=== PATIENT | female | born 1960 | race Caucasian/White ===

== ENCOUNTER 2019-07-20 09:46 | Emergency (ER) | payer MEDICAID, OTHER ==
[~2019-07-20] VITALS: Ht 154 cm; Wt 72.0 kg
--- NOTE | 2019-07-20 10:05 | ED General ---
General Stated Complaint: BACK PAIN Source of Information: Patient Exam Limitations: No Limitations History of Present Illness Date Seen by Provider: Jul 20, 2019 Time Seen by Provider: 10:01 Initial Comments Presents w complaint of low back pain. Hx of chronic pain. Worried she may have an infection. Allergies and Home Medications Allergies Coded Allergies: No Known Drug Allergies (Unverified , 07/20/19) Home Medications Cyclobenzaprine HCl 10 Mg Tablet, 10 MG PO Q8H PRN for SPASMS Prescribed by: GERALD LUGO on 07/20/19 1021 Ondansetron 4 Mg Tab.rapdis, 4 MG PO Q6H PRN for NAUSEA/VOMITING Prescribed by: GERALD MCELROYSTINE on 07/20/19 1021 Patient Home Medication List Home Medication List Reviewed: Yes Review of Systems Review of Systems Constitutional: see HPI; No chills, No diaphoresis, No dizziness, No fever; malaise; No weakness EENTM: no symptoms reported Respiratory: No cough, No short of breath Cardiovascular: No chest pain, No edema, No palpitations Gastrointestinal: No abdominal pain, No constipation, No nausea, No vomiting Genitourinary: see HPI; No dysuria, No frequency, No hematuria Musculoskeletal: back pain, muscle pain; No neck pain Skin: No change in color, No pruritus, No rash Past Irxirvg-Wiqxyb-Lydpja Hx Past Med/Social Hx: Reviewed Nursing Past Med/Soc Hx Patient Social History Recent Foreign Travel: No Contact w/Someone Who Travel: No Physical Exam Vital Signs Vital Signs - First Documented 07/20/19 10:02 Temp 36.5 Pulse 92 Resp 18 B/P (MAP) 182/88 (119) O2 Delivery Room Air Capillary Refill : Height, Weight, BMI Height: '" Weight: lbs. oz. kg; BMI Method: General Appearance: No Apparent Distress, WD/WN HEENT: Normal ENT Inspection Respiratory: Chest Non Tender, Lungs Clear Cardiovascular: Regular Rate, Rhythm, No Edema Gastrointestinal: Non Tender, Soft Back: No CVA Tenderness, No Vertebral Tenderness, Other (lumbar paraspinal ms mild discomfort TTP) Extremity: Normal Capillary Refill, Normal Inspection, Non Tender, No Pedal Edema Neurologic/Psychiatric: Alert, No Motor/Sensory Deficits Progress/Results/Core Measures Suspected Sepsis SIRS Temperature: Pulse: Respiratory Rate: Blood Pressure / Mean: Results/Orders Lab Results Laboratory Tests Test 07/20/19 10:00 Range/Units Urine Color YELLOW Urine Clarity CLEAR Urine pH 6.5 5-9 Urine Specific [place] 1.020 1.016-1.022 Urine Protein 1+ H NEGATIVE Urine Glucose (UA) NEGATIVE NEGATIVE Urine Ketones NEGATIVE NEGATIVE Urine Nitrite NEGATIVE NEGATIVE Urine Bilirubin NEGATIVE NEGATIVE Urine Urobilinogen 0.2 < = 1.0 MG/DL Urine Leukocyte Esterase NEGATIVE NEGATIVE Urine RBC (Auto) 1+ H NEGATIVE Urine RBC RARE /HPF Urine WBC 0-2 /HPF Urine Squamous Epithelial Cells RARE /HPF Urine Crystals NONE /LPF Urine Bacteria NEGATIVE /HPF Urine Casts PRESENT /LPF Urine Hyaline Casts 0-2 H /LPF Urine Mucus NONE /LPF Urine Culture Indicated NO My Orders Orders - GERALD LUGO DO Urinalysis (07/20/19 10:00) Vital Signs/I&O 07/20/19 10:02 Temp 36.5 Pulse 92 Resp 18 B/P (MAP) 182/88 (119) O2 Delivery Room Air Capillary Refill : Departure Impression Primary Impression: Chronic pain Qualified Codes: G89.29 - Other chronic pain Additional Impression: Myalgia Disposition: HOME, SELF-CARE Condition: Stable Departure-Patient Inst. Decision time for Depature: 10:05 Referrals: SELFCHOLO MD (PCP/Family) Primary Care Physician Patient Instructions: Chronic Pain (DC) Scripts Ondansetron (Ondansetron Odt) 4 Mg Tab.rapdis 4 MG PO Q6H PRN for NAUSEA/VOMITING, #8 TAB 0 Refills Prov: LILIBETHSTINEGERALD L DO 07/20/19 Cyclobenzaprine HCl (Cyclobenzaprine HCl) 10 Mg Tablet 10 MG PO Q8H PRN for SPASMS, #15 TAB 0 Refills Prov: ROVENSTINE,GERALD L DO 07/20/19 ROVENSTINENIMISHAGERALD L Jul 20, 2019 10:05
[2019-07-20 10:13] LABS: COLOR,URINE YELLOW
[2019-07-20 10:14] LABS: BACTERIA,URINE NEGATIVE /HPF; BILIRUBIN,URINE NEGATIVE (NEGATIVE); CLARITY,URINE CLEAR; GLUCOSE, URINE (UA) NEGATIVE (NEGATIVE); HYALINE CASTS, URINE 0-2 /LPF; KETONES,URINE NEGATIVE (NEGATIVE); LEUKOCYTE ESTERASE ,URINE NEGATIVE (NEGATIVE); NITRITE,URINE NEGATIVE (NEGATIVE); PH,URINE 6.5 (5-9); PROTEIN,URINE 1+ (NEGATIVE); RBC,URINE RARE /HPF; SQUAMOUS EPITHELIAL CELL,UR RARE /HPF; WBC,URINE 0-2 /HPF
[2019-07-20] MEDS ORDERED: CYCL10TA9 PO (10:21)
[2019-07-20] MEDS ORDERED: ONDA4TAB11 PO (10:21)
[2019-07-20 10:25] VITALS: BP 182/88
== END 2019-07-20 10:24 | disposition home or self-care (01) ==
LOC: EDUNIT# 09:46 → ER FS 09:49
DX: M54.5 Low back pain (principal); G89.29 Other chronic pain; M79.7 Fibromyalgia
CPT/HCPCS: 81000; 99281

== ENCOUNTER 2022-03-15 16:15 | Emergency (ER) | payer MEDICAID ==
[~2022-03-15 16:15] MED LIST: CYCL10TA25 PO; ONDA4TAB11 PO
[2022-03-15 17:01] LABS: BILIRUBIN,URINE NEGATIVE (NEGATIVE); CLARITY,URINE SL CLOUDY; GLUCOSE, URINE (UA) NEGATIVE (NEGATIVE); KETONES,URINE NEGATIVE (NEGATIVE); LEUKOCYTE ESTERASE ,URINE NEGATIVE (NEGATIVE); NITRITE,URINE NEGATIVE (NEGATIVE); PH,URINE 6.5 (5-9); PROTEIN,URINE NEGATIVE (NEGATIVE)
--- NOTE | 2022-03-15 17:02 | ED Cough/URI ---
General Chief Complaint: Cough/Cold/Flu Symptoms Stated Complaint: DETOX FROM MEDS Nursing Triage Note: PT REPORTS EARACHE BILATERALLY, RUNNY NOSE. PT WANTS TO KNOW IF DR WOULD START HER ON SUBOXONE TOO. (MARJAN MARSH) History of Present Illness Date Seen by Provider: Mar 15, 2022 Time Seen by Provider: 16:45 Initial Comments 61 yo female with hx of breast ca, COPD, and depression presents to the ED with URI sx. Pt reports for 5 days she has been having post nasal drip, nonproductive cough, CAMERON, sinus congestion, and b/l ear pain. She notes that she felt like she had a fever yesterday. Has taken Tylenol with mild relief of sx. Also reports that she has had withdrawal sx since tapering off her prescription pain medi cations. Has associated N/V/D for several months. Said that she found a pill of Oxyecodeine in her house 2 days ago and took it after going several weeks without taking pain medications. Wants to know if she could start suboxone. Denies any CP or SOB. No other complaints. Pt is not covid or flu vaccinated. (MARJAN MARSH) Allergies and Home Medications Allergies Coded Allergies: No Known Drug Allergies (Unverified , 07/20/19) Patient Home Medication List Home Medication List Reviewed: Yes (MARJAN MARSH) Cyclobenzaprine HCl (Cyclobenzaprine HCl) 10 Mg Tablet, 10 MG PO Q8H PRN for SPASMS Prescribed by: GERALD MCELROYSTDEBBIE on 07/20/19 1021 Ondansetron (Ondansetron Odt) 4 Mg Tab.rapdis, 4 MG PO Q6H PRN for NAUSEA/VOMITING Prescribed by: GERALD MCELROYSTINE on 07/20/19 1021 Ondansetron (Ondansetron Odt) 4 Mg Tab.rapdis, 4 MG SL Q4H PRN for NAUSEA/VOMITING Prescribed by: APRIL ALDANA on 03/15/221910 Pantoprazole Sodium (Protonix) 40 Mg Tablet.dr, 40 MG PO DAILY Prescribed by: APRIL ALDANA on 03/15/221910 Potassium Chloride (Potassium Chloride) 10 Meq Tab.er.prt, 10 MEQ PO DAILY Prescribed by: APRIL ALDANA on 03/15/221910 Review of Systems Review of Systems Constitutional: dizziness, malaise EENTM: ear pain, nose congestion Cardiovascular: no symptoms reported Gastrointestinal: diarrhea, loss of appetite, nausea, vomiting Genitourinary: no symptoms reported Musculoskeletal: no symptoms reported Skin: no symptoms reported Psychiatric/Neurological: No Symptoms Reported Hematologic/Lymphatic: No Symptoms Reported Immunological/Allergic: no symptoms reported (MARJAN MARSH) All Other Systems Reviewed Negative Unless Noted: Yes (MARJAN MARSH) Past Krftwnb-Znzbuc-Vazqjf Hx Patient Social History Tobacco Use?: Yes Tobacco type used: Cigarettes Use of E-Cig and/or Vaping dev: No Substance use?: No Alcohol Use?: No Pt feels they are or have been: No (MARJAN MARSH) Seasonal Allergies Seasonal Allergies: No (MARJAN MARSH) Past Medical History Surgery/Hospitalization HX: breast ca Respiratory: No Cardiac: No Neurological: No Genitourinary: No Gastrointestinal: No Musculoskeletal: Yes Arthritis, Chronic Back Pain Endocrine: No HEENT: No Cancer: No Psychosocial: Yes Anxiety, Depression Integumentary: No Blood Disorders: No (MARJAN MARSH) Physical Exam Vital Signs - First Documented 03/15/22 16:15 Temp 36.7 Pulse 93 Resp 18 B/P (MAP) 150/100 (117) Pulse Ox 100 O2 Delivery Room Air (APRIL AUSTIN MD) Capillary Refill : Less Than 3 Seconds (MARJAN MARSH) Height: '" Weight: lbs. oz. kg; 30.00 BMI Method: General Appearance: WD/WN, no apparent distress Eyes: Bilateral Eye Normal Inspection, Bilateral Eye PERRL, Bilateral Eye EOMI HEENT: PERRL/EOMI, normal ENT inspection, TMs normal, pharyngeal erythema Neck: non-tender, full range of motion, supple, normal inspection Respiratory: chest non-tender, lungs clear, normal breath sounds, no respiratory distress, no accessory muscle use Cardiovascular: regular rate, rhythm, no edema, no gallop, no JVD, no murmur Gastrointestinal: normal bowel sounds, non tender, soft, no organomegaly, no pulsatile mass Extremities: normal range of motion, non-tender, normal inspection, no pedal edema, no calf tenderness, normal capillary refill 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, no motor/sensory deficits, normal mood/affect, oriented x 3 Skin: normal color, warm/dry Lymphatic: no adenopathy (MARJAN MARSH) Progress/Results/Core Measures Suspected Sepsis SIRS Temperature: Pulse: 93 Respiratory Rate: 18 Blood Pressure 150 /100 Mean: 117 (MARJAN MARSH) Results/Orders Lab Results Laboratory Tests Test 03/15/22 16:25 03/15/22 16:48 03/15/22 17:43 Range/Units Influenza Type A (RT-PCR) Not Detected Not Detecte Influenza Type B (RT-PCR) Not Detected Not Detecte SARS-CoV-2 RNA (RT-PCR) Not Detected Not Detecte Urine Color PALE YELLOW Urine Clarity SL CLOUDY Urine pH 6.5 5-9 Urine Specific [place] <=1.005 1.016-1.022 Urine Protein NEGATIVE NEGATIVE Urine Glucose (UA) NEGATIVE NEGATIVE Urine Ketones NEGATIVE NEGATIVE Urine Nitrite NEGATIVE NEGATIVE Urine Bilirubin NEGATIVE NEGATIVE Urine Urobilinogen 0.2 < = 1.0 MG/DL Urine Leukocyte Esterase NEGATIVE NEGATIVE Urine RBC (Auto) NEGATIVE NEGATIVE Urine RBC RARE /HPF Urine WBC RARE /HPF Urine Squamous Epithelial Cells RARE /HPF Urine Crystals NONE /LPF Urine Bacteria NEGATIVE /HPF Urine Casts NONE /LPF Urine Mucus NEGATIVE /LPF Urine Culture Indicated NO Urine Opiates Screen NEGATIVE NEGATIVE Urine Oxycodone Screen NEGATIVE NEGATIVE Urine Methadone Screen NEGATIVE NEGATIVE Urine Propoxyphene Screen NEGATIVE NEGATIVE Urine Barbiturates Screen NEGATIVE NEGATIVE Ur Tricyclic Antidepressants Screen NEGATIVE NEGATIVE Urine Phencyclidine Screen NEGATIVE NEGATIVE Urine Amphetamines Screen NEGATIVE NEGATIVE Urine Methamphetamines Screen NEGATIVE NEGATIVE Urine Benzodiazepines Screen NEGATIVE NEGATIVE Urine Cocaine Screen NEGATIVE NEGATIVE Urine Cannabinoids Screen NEGATIVE NEGATIVE White Blood Count 8.4 4.3-11.0 10^3/uL Red Blood Count 3.68 L 3.80-5.11 10^6/uL Hemoglobin 11.1 L 11.5-16.0 g/dL Hematocrit 31 L 35-52 % Mean Corpuscular Volume 84 80-99 fL Mean Corpuscular Hemoglobin 30 25-34 pg Mean Corpuscular Hemoglobin Concent 36 32-36 g/dL Red Cell Distribution Width 14.2 10.0-14.5 % Platelet Count 334 130-400 10^3/uL Mean Platelet Volume 9.5 9.0-12.2 fL Immature Granulocyte % (Auto) 0 % Neutrophils (%) (Auto) 76 H 42-75 % Lymphocytes (%) (Auto) 19 12-44 % Monocytes (%) (Auto) 5 0-12 % Eosinophils (%) (Auto) 0 0-10 % Basophils (%) (Auto) 0 0-10 % Neutrophils # (Auto) 6.4 1.8-7.8 10^3/uL Lymphocytes # (Auto) 1.6 1.0-4.0 10^3/uL Monocytes # (Auto) 0.4 0.0-1.0 10^3/uL Eosinophils # (Auto) 0.0 0.0-0.3 10^3/uL Basophils # (Auto) 0.0 0.0-0.1 10^3/uL Immature Granulocyte # (Auto) 0.0 0.0-0.1 10^3/uL Prothrombin Time 15.6 H 12.2-14.7 SEC INR Comment 1.2 0.8-1.4 Activated Partial Thromboplast Time 32 24-35 SEC Sodium Level 138 135-145 MMOL/L Potassium Level 2.8 L 3.6-5.0 MMOL/L Chloride Level 105 98-107 MMOL/L Carbon Dioxide Level 20 L 21-32 MMOL/L Anion Gap 13 5-14 MMOL/L Blood Urea Nitrogen 4 L 7-18 MG/DL Creatinine 1.04 0.60-1.30 MG/DL Estimat Glomerular Filtration Rate 60 BUN/Creatinine Ratio 4 Glucose Level 102 70-105 MG/DL Calcium Level 9.0 8.5-10.1 MG/DL Corrected Calcium 9.3 8.5-10.1 MG/DL Magnesium Level 1.6 1.6-2.4 MG/DL Total Bilirubin 0.2 0.1-1.0 MG/DL Aspartate Amino Transf (AST/SGOT) 7 5-34 U/L Alanine Aminotransferase (ALT/SGPT) < 5 0-55 U/L Alkaline Phosphatase 96 40-136 U/L Myoglobin 59.5 H <58.0 NG/ML Troponin I < 0.30 <0.30 NG/ML Total Protein 6.2 L 6.4-8.2 GM/DL Albumin 3.6 3.2-4.5 GM/DL (APRIL AUSTIN MD) My Orders Orders - APRIL AUSTIN MD Covid 19 Inhouse Test (03/15/22 16:45) Influenza A And B By Pcr (03/15/22 16:45) Isolation Central Supply Req (03/15/22 16:45) Urinalysis (03/15/22 16:53) Drug Screen Stat (Urine) (03/15/22 16:53) Cbc With Automated Diff (03/15/22 18:01) Magnesium (03/15/22 18:01) Chest 1 View Ap/Pa Only (03/15/22 18:01) Ekg Tracing (03/15/22 18:01) Comprehensive Metabolic Panel (03/15/22 18:01) Myoglobin Serum (03/15/22 18:01) Protime With Inr (03/15/22 18:) Partial Thromboplastin Time (03/15/22 18:) O2 (03/15/22 18:01) Monitor-Rhythm Ecg Trace Only (03/15/22 18:01) Ed Iv/Invasive Line Start (03/15/22 18:01) Troponin I Fs (03/15/22 18:01) Ketorolac Injection (Toradol Injection) (03/15/22 19:00) Ns Iv 1000 Ml (Sodium Chloride 0.9%) (03/15/22 19:00) Potassium Chloride (Tablet) (Klor Con Ta (03/15/22 19:00) Potassium Cl 10meq/50ml Ivpb (Kcl 10 Meq (03/15/22 19:00) Potassium Cl 10meq/50ml Ivpb (Kcl 10 Meq (03/15/22 19:00) Pantoprazole Tablet (Protonix Tablet) (03/15/22 19:15) Ondansetron Injection (Zofran Injectio (03/15/22 19:15) Potassium Cl 10meq/50ml Ivpb (Kcl 10 Meq (03/15/22 19:05) Potassium Chloride (Tablet) (Klor Con Ta (03/15/22 21:08) (APRIL AUSTIN MD) Medications Given in ED Current Medications Medications Dose Ordered Sig/Alexia Route Start Time Stop Time Status Last Admin Dose Admin Ketorolac Tromethamine 15 mg ONCE ONCE IVP 03/15/22 19:00 03/15/22 19:01 DC 03/15/22 19:16 15 MG Ondansetron HCl 4 mg ONCE ONCE IVP 03/15/22 19:15 03/15/22 19:16 DC 03/15/22 19:14 4 MG Pantoprazole Sodium 40 mg ONCE ONCE PO 03/15/22 19:15 03/15/22 19:16 DC 03/15/22 19:13 40 MG Potassium Chloride 40 meq ONCE ONCE PO 03/15/22 19:00 03/15/22 19:01 DC 03/15/22 21:10 40 MEQ Potassium Chloride 50 ml @ 50 mls/hr ONCE ONCE IV 03/15/22 19:00 03/15/22 19:59 DC 03/15/22 19:17 50 MLS/HR Potassium Chloride 50 ml @ 50 mls/hr ONCE ONCE IV 03/15/22 19:00 03/15/22 19:59 DC 03/15/22 20:07 50 MLS/HR (APRIL AUSTIN MD) Vital Signs/I&O 03/15/22 03/15/22 16:15 21:12 Temp 36.7 Pulse 93 93 Resp 18 18 B/P (MAP) 150/100 (117) 132/74 Pulse Ox 100 98 O2 Delivery Room Air Room Air 03/16/22 00:00 Intake Total 1400 ml Balance 1400 ml (APRIL AUSTIN MD) Vital Signs/I&O Capillary Refill : Less Than 3 Seconds (MARJAN MARSH) Blood Pressure Mean: 117 Progress Note : Time: 17:52 Progress Note While in room with Dr. Austin patient now reports that she has CP which started last night (MARJAN MARSH) Progress Note : Progress Note Patient reported chest pain to this provider which was not mentioned to nursing staff or MS 3. She states the chest pain started last night and feels like a tightness in her upper chest and like heartburn. She was found to have significant hypokalemia which was initially replaced with 20 mEq of IV route and later 40 mill equivalents orally. Patient was feeling much improved after treatment and was discharged home. Toradol was given for headache and chest discomfort. Protonix was given for suspected GERD. Cardiac work-up was unremarkable. (APRIL AUSTIN MD) ECG Initial ECG Impression Date: Mar 15, 2022 Initial ECG Impression Time: 18:09 Initial ECG Rate: 96 Initial ECG Rhythm: Normal Sinus Initial ECG Intervals: Normal Initial ECG Impression: Normal Comment Sinus rhythm with no ST elevation or depression. No abnormal intervals or axis deviation. (APRIL AUSTIN MD) Diagnostic Imaging Diagonstic Imaging: Xray Plain Films/CT/US/NM/MRI: chest Comments NAME: JANET HERNANDES [facility] REC#: [id number] PT STATUS: REG ER : 1960 PHYSICIAN: APRIL AUSTIN MD ADMIT DATE: 03/15/22/ER FS Signed Date of Exam:03/15/22 CHEST 1 VIEW AP/PA ONLY INDICATION: Chest pain. FINDINGS: The heart size, mediastinal configuration, and pulmonary vascularity are within normal limits. There is no pleural effusion, pneumothorax, or pneumonia. The osseous structures are unremarkable. IMPRESSION: No acute cardiopulmonary abnormality. Dictated by: Dictated on workstation # [id number] Dict: 03/15/221831 Trans: 03/15/221854 [facility] [id number] Interpreted by: RU REEVES MD Electronically signed by: RU REEVES MD 03/15/221854 (APRIL AUSTIN MD) Departure Impression Primary Impression: Hypokalemia Additional Impressions: Nausea & vomiting Qualified Codes: R11.2 - Nausea with vomiting, unspecified Atypical chest pain Gastroesophageal reflux Qualified Codes: K21.9 - Gastro-esophageal reflux disease without esophagitis Disposition: 01 HOME, SELF-CARE Condition: Improved Departure-Patient Inst. Decision time for Depature: 19:07 (APRLI AUSTIN MD) Referrals: CHOLO KIM MD (PCP/Family) Primary Care Physician Patient Instructions: Acid Reflux and Gastroesophageal Reflux Disease in Adults, Hypokalemia Add. Discharge Instructions: You may use Zofran (ondansetron) as prescribed for nausea or vomiting. Use the Phenergan (promethazine) previously prescribed as a backup medication for nausea and vomiting. Your potassium was low in the emergency room. Eating a well-balanced diet will help replace your potassium. In the short-term, some potassium supplement is being prescribed to you. Take Protonix (pantoprazole) antacid medication and discuss further use with your doctor. Follow-up with your doctor soon as possible. Discussed these medications and your low potassium with him. Discussed what should be done to further evaluate your nausea and vomiting. You may need referral for endoscopy if deemed appropriate by your doctor. You should have your potassium checked again within the next several days. Please make those arrangements with your primary care provider. Return to care if you have worsening symptoms despite following these instructions. All discharge instructions reviewed with patient and/or family. Voiced understanding. Scripts Pantoprazole Sodium (Protonix) 40 Mg Tablet.dr 40 MG PO DAILY, #30 TAB Prov: APRIL AUSTIN MD 03/15/22 Potassium Chloride (Potassium Chloride) 10 Meq Tab.er.prt 10 MEQ PO DAILY, #10 TAB Prov: APRIL AUSTIN MD 03/15/22 Ondansetron (Ondansetron Odt) 4 Mg Tab.rapdis 4 MG SL Q4H PRN for NAUSEA/VOMITING, #10 TAB Prov: APRIL AUSTIN MD 03/15/22 Medical Student Attestation and Attending Note: I have personally interviewed and examined this patient along with Marjan Marsh, MS 3. I have reviewed student documentation including history, physical, and assessments. I agree with the documentation except where otherwise noted. Exam: General: Alert, oriented, no acute distress, well developed HEENT: Normocephalic and atraumatic Heart: Regular rate and rhythm without murmur Lungs: Clear to auscultation bilaterally with normal effort Abdomen: Soft, nontender, nondistended, normal bowel sounds Neuropsych: Alert, oriented, no focal deficits Skin: Warm and dry without rashes (APRIL AUSTIN MD) Copy Copies To 1: SELFCHOLO MD, ANISHA T Mar 15, 2022 17:02 APRIL AUSTIN MD Mar 15, 2022 19:12
[2022-03-15 17:12] LABS: AMPHETAMINE SCREEN, URINE NEGATIVE (NEGATIVE); BARBITURATE SCREEN URINE NEGATIVE (NEGATIVE); BENZODIAZEPINES SCREEN URINE NEGATIVE (NEGATIVE); CANNABINOID SCREEN, URINE NEGATIVE (NEGATIVE); COCAINE SCREEN URINE NEGATIVE (NEGATIVE); METHADONE STAT NEGATIVE (NEGATIVE); OPIATE SCREEN URINE NEGATIVE (NEGATIVE); OXYCODONE STAT NEGATIVE (NEGATIVE); PROPOXYPHENE STAT NEGATIVE (NEGATIVE); TRICYCLIC ANTIDEPRESSANTS SCRE NEGATIVE (NEGATIVE)
[2022-03-15 17:15] LABS: BACTERIA,URINE NEGATIVE /HPF; COLOR,URINE PALE YELLOW; RBC,URINE RARE /HPF; SQUAMOUS EPITHELIAL CELL,UR RARE /HPF; WBC,URINE RARE /HPF
[2022-03-15 18:10] LABS: BASOPHILS % (AUTO) 0 % (0-10); EOSINOPHILS % (AUTO) 0 % (0-10); HEMATOCRIT 31 % (35-52); HEMOGLOBIN 11.1 g/dL (11.5-16.0); LYMPHOCYTES # (AUTO) 1.6 10^3/uL (1.0-4.0); LYMPHOCYTES % (AUTO) 19 % (12-44); MEAN CORPUSCULAR HEMOGLOBIN 30 pg (25-34); MEAN CORPUSCULAR HGB CONC 36 g/dL (32-36); MEAN CORPUSCULAR VOLUME 84 fL (80-99); MEAN PLATELET VOLUME 9.5 fL (9.0-12.2); MONOCYTES # (AUTO) 0.4 10^3/uL (0.0-1.0); MONOCYTES % (AUTO) 5 % (0-12); NEUTROPHILS # (AUTO) 6.4 10^3/uL (1.8-7.8); NEUTROPHILS % (AUTO) 76 % (42-75); PLATELET COUNT 334 10^3/uL (130-400); WHITE BLOOD COUNT 8.4 10^3/uL (4.3-11.0)
[2022-03-15 18:22] LABS: INR 1.2 (0.8-1.4); PROTHROMBIN TIME PATIENT 15.6 SEC (12.2-14.7)
[2022-03-15 18:30] LABS: ALKALINE PHOSPHATASE 96 U/L (40-136); BILIRUBIN,TOTAL 0.2 MG/DL (0.1-1.0); BUN/CREATININE RATIO 4; CARBON DIOXIDE 20 MMOL/L (21-32); CHLORIDE 105 MMOL/L (98-107); CREATININE SERUM 1.04 MG/DL (0.60-1.30); GFR ESTIMATED 60; GLUCOSE 102 MG/DL (70-105); MAGNESIUM 1.6 MG/DL (1.6-2.4); POTASSIUM 2.8 MMOL/L (3.6-5.0); SODIUM 138 MMOL/L (135-145)
[2022-03-15 18:31] LABS: ALANINE AMINOTRANSFERASE < 5 U/L (0-55); ALBUMIN 3.6 GM/DL (3.2-4.5); TOTAL PROTEIN 6.2 GM/DL (6.4-8.2)
--- NOTE | 2022-03-15 18:36 | Diagnostic Imaging Report ---
INDICATION: Chest pain. FINDINGS: The heart size, mediastinal configuration, and pulmonary vascularity are within normal limits. There is no pleural effusion, pneumothorax, or pneumonia. The osseous structures are unremarkable. IMPRESSION: No acute cardiopulmonary abnormality. Dictated by: Dictated on workstation # [id number]
[2022-03-15] MEDS ORDERED: KETOROLAC 30 MG/ML VIAL IVP ONE (19:00)
[2022-03-15] MEDS ORDERED: NS IV 1000 ML 1,000 ML IV SCH (19:00)
[2022-03-15] MEDS ORDERED: KCL 10 MEQ TAB (MICRO K) PO ONE ×2 (19:00→21:08)
[2022-03-15] MEDS ORDERED: POTASSIUM CL 10MEQ/50ML IVPB 50 ML IV ONE ×3 (19:00→19:05)
[2022-03-15] MEDS ORDERED: ONDA4TAB11 SL (19:11)
[2022-03-15] MEDS ORDERED: POTA-177 PO (19:11)
[2022-03-15] MEDS ORDERED: PANT40TA2 PO (19:11)
[2022-03-15] MEDS ORDERED: PANTOPRAZOLE 40 MG (PROTONIX) TAB PO ONE (19:15)
[2022-03-15] MEDS ORDERED: ONDANSETRON 4 MG/2 ML (SDV) Z0FRAN IVP ONE (19:15)
[2022-03-15 21:12] VITALS: BP 132/74
== END 2022-03-15 21:12 | disposition home or self-care (01) ==
LOC: EDUNIT# 16:15 → ER FS 16:17
DX: E87.6 Hypokalemia (principal); K21.9 Gastro-esophageal reflux disease without esophagitis; F17.210 Nicotine dependence, cigarettes, uncomplicated; Z20.822 Contact with and (suspected) exposure to COVID-19; Z28.310 Unvaccinated for COVID-19
CPT/HCPCS: 36415; 71045; 80053; 80306; 81000; 83735; 83874; 84484; 85025; 85610; 85730; 87636; 93005; 93041

== ENCOUNTER 2022-03-17 19:37 | Emergency (ER) | payer MEDICAID ==
[~2022-03-17 19:37] MED LIST changes: +ONDA4TAB11 SL; +PANT40TA2 PO; +POTA-177 PO
--- NOTE | 2022-03-17 19:53 | ED General ---
General Chief Complaint: General Problems/Pain Stated Complaint: GENERAL PAIN Source of Information: Patient Exam Limitations: No Limitations History of Present Illness Date Seen by Provider: Mar 17, 2022 Time Seen by Provider: 19:35 Initial Comments Patient is a 61-year-old female with chronic pain syndrome who presents with poorly controlled pain. She states she was taking off of OxyContin 2 weeks ago after failing a urine drug screen and declined to be placed on Suboxone at that time. She states that she had nausea and vomiting and diarrhea for the first few days which is gradually subsided now she complains of chronic neck back and shoulder pain which is poorly controlled. She did take Tylenol prior to ED arrival. She is requesting management of chronic pain until she can be evaluated by her primary care doctor. No chest pain shortness of breath nausea vomiting sweats or fever. No other acute symptoms or complaints. Patient arrives by EMS. Timing/Duration: Other Modifying Factors: improves with Other Associated Systoms: Other Allergies and Home Medications Allergies Coded Allergies: No Known Drug Allergies (Unverified , 07/20/19) Patient Home Medication List Home Medication List Reviewed: Yes Cyclobenzaprine HCl (Cyclobenzaprine HCl) 10 Mg Tablet, 10 MG PO Q8H PRN for SPASMS Prescribed by: GERALD MCELROYSTDEBBIE on 07/20/19 1021 Ondansetron (Ondansetron Odt) 4 Mg Tab.rapdis, 4 MG PO Q6H PRN for NAUSEA/VOMITING Prescribed by: GERALD ALARCONVENSTINE on 07/20/19 1021 Ondansetron (Ondansetron Odt) 4 Mg Tab.rapdis, 4 MG SL Q4H PRN for NAUSEA/VOMITING Prescribed by: APRIL ALDANA on 03/15/221910 Pantoprazole Sodium (Protonix) 40 Mg Tablet.dr, 40 MG PO DAILY Prescribed by: APRIL ALDANA on 03/15/221910 Potassium Chloride (Potassium Chloride) 10 Meq Tab.er.prt, 10 MEQ PO DAILY Prescribed by: APRIL ALDANA on 03/15/221910 Review of Systems Review of Systems Constitutional: see HPI EENTM: see HPI Respiratory: see HPI Cardiovascular: see HPI Gastrointestinal: see HPI Genitourinary: see HPI Musculoskeletal: see HPI Skin: see HPI Psychiatric/Neurological: See HPI Hematologic/Lymphatic: See HPI Immunological/Allergic: see HPI All Other Systems Reviewed Negative Unless Noted: No Past Vcueypr-Tbkicr-Kauwyp Hx Patient Social History Tobacco Use?: No Substance use?: Yes Substance type: Opiates/Opioids Alcohol Use?: No Pt feels they are or have been: No Seasonal Allergies Seasonal Allergies: No Past Medical History Surgery/Hospitalization HX: breast ca Respiratory: No Cardiac: No Neurological: No Genitourinary: No Gastrointestinal: No Musculoskeletal: Yes Arthritis, Chronic Back Pain Endocrine: No HEENT: No Cancer: No Psychosocial: Yes Anxiety, Depression Integumentary: No Blood Disorders: No Physical Exam Vital Signs Capillary Refill : Height, Weight, BMI Height: '" Weight: lbs. oz. kg; 30.00 BMI Method: General Appearance: WD/WN, Anxious Eyes: Bilateral Eye Normal Inspection, Bilateral Eye PERRL HEENT: PERRL/EOMI, Normal ENT Inspection, Pharynx Normal, Moist Mucous Membranes Neck: Supple Respiratory: Lungs Clear Cardiovascular: Regular Rate, Rhythm, No Edema Gastrointestinal: Non Tender, Soft Extremity: Normal Capillary Refill Neurologic/Psychiatric: Alert, Oriented x3, No Motor/Sensory Deficits Skin: Normal Color Focused Exam Sepsis Stage: Ruled Out Progress/Results/Core Measures Suspected Sepsis SIRS Temperature: Pulse: Respiratory Rate: Blood Pressure / Mean: Results/Orders Vital Signs/I&O Capillary Refill : Departure Communication (Admissions) Chronic pain. No chest pain palpitation shortness of breath nausea vomiting. Vital signs stable. Recommendations for Tylenol 1 g every 6 until follow-up with her PCP tomorrow for further management. Impression Primary Impression: Chronic pain Disposition: 01 HOME, SELF-CARE Condition: Stable Departure-Patient Inst. Decision time for Depature: 19:52 Referrals: SELFCHOLO MD (PCP/Family) Primary Care Physician Patient Instructions: Chronic Pain Add. Discharge Instructions: Please follow-up with your PCP for further evaluation and management of chronic pain. All discharge instructions reviewed with patient and/or family. Voiced understanding. CALEB KRUSE DO Mar 17, 2022 19:53
[2022-03-17 19:54] VITALS: BP 141/87
== END 2022-03-17 19:55 | disposition home or self-care (01) ==
LOC: EDUNIT# 19:37 → ER FS 19:38
DX: G89.29 Other chronic pain (principal); M54.2 Cervicalgia; M25.519 Pain in unspecified shoulder; Z28.310 Unvaccinated for COVID-19
CPT/HCPCS: 99283

== ENCOUNTER 2022-05-02 02:38 | Emergency (ER) | payer MEDICAID ==
[2022-05-02] MEDS ORDERED: KETOROLAC 15 MG/ML VIAL IM ONE (02:45)
--- NOTE | 2022-05-02 02:51 | ED Fall/Injury ---
General Stated Complaint: FALL Source: patient, EMS Exam Limitations: no limitations History of Present Illness Date Seen by Provider: May 02, 2022 Time Seen by Provider: 02:37 Initial Comments 61-year-old female presents to the emergency department via EMS after a fall 6 hours ago. She states she has thrush which frequently causes her to gag. She started gagging and felt like she was going to urinate on herself due to the increased pressure. She got up quickly to go to the restroom and tripped, falling to the ground on her left side. She states she fell on her left posterolateral ribs and has pain in this area. She did not hit her head or get knocked out. She is not on any blood thinning medications. She did not really have any pain right after the fall but over the course of the next several hours developed left posterior lateral rib pain. She has no pain in her arms, legs, chest or abdomen. No midline back tenderness. Again she has been up and walking around. She states she has some mild pain in her neck which is more muscular than anything else. It is on the left lateral side without any midline tenderness. No upper or lower extremity weakness numbness or tingling. Notably she does have a history of addiction to narcotic pain medication, previously on OxyContin. She refused to go on Suboxone so is now not taking any narcotic medication per her report. She did take Tylenol prior to arrival. Allergies and Home Medications Allergies Coded Allergies: No Known Drug Allergies (Unverified , 07/20/19) Patient Home Medication List Home Medication List Reviewed: Yes Cyclobenzaprine HCl (Cyclobenzaprine HCl) 10 Mg Tablet, 10 MG PO Q8H PRN for SPASMS Prescribed by: GERALD LUGO on 07/20/19 1021 Ondansetron (Ondansetron Odt) 4 Mg Tab.rapdis, 4 MG PO Q6H PRN for NAUSEA/VOMITING Prescribed by: GERALD MCELROYSTINE on 07/20/19 1021 Ondansetron (Ondansetron Odt) 4 Mg Tab.rapdis, 4 MG SL Q4H PRN for NAUSEA/VOMITING Prescribed by: APRIL ALDANA on 03/15/221910 Pantoprazole Sodium (Protonix) 40 Mg Tablet.dr, 40 MG PO DAILY Prescribed by: APRIL ALDANA on 03/15/221910 Potassium Chloride (Potassium Chloride) 10 Meq Tab.er.prt, 10 MEQ PO DAILY Prescribed by: APRIL ALDANA on 03/15/221910 Review of Systems Review of Systems Constitutional: no symptoms reported Eyes: No Symptoms Reported Ears, Nose, Mouth, Throat: no symptoms reported Respiratory: no symptoms reported Cardiovascular: no symptoms reported Gastrointestinal: no symptoms reported Genitourinary: no symptoms reported Musculoskeletal: other (Left posterior chest wall pain) Skin: no symptoms reported Psychiatric/Neurological: No Symptoms Reported Past Xfstaxy-Ugrjjr-Gmifcg Hx Patient Social History Tobacco Use?: No Use of E-Cig and/or Vaping dev: No Substance use?: No Alcohol Use?: No Seasonal Allergies Seasonal Allergies: No Past Medical History Surgery/Hospitalization HX: breast ca Respiratory: No Cardiac: No Neurological: No Genitourinary: No Gastrointestinal: No Musculoskeletal: Yes Arthritis, Chronic Back Pain Endocrine: No HEENT: No Cancer: No Psychosocial: Yes Anxiety, Depression Integumentary: No Blood Disorders: No Family Medical History Reviewed Nursing Family Hx No Pertinent Family Hx Physical Exam Vital Signs Vital Signs - First Documented 05/02/22 02:39 Temp 36.5 Pulse 113 Resp 20 B/P (MAP) 111/58 (75) Pulse Ox 100 O2 Delivery Room Air Capillary Refill : Height, Weight, BMI Height: '" Weight: lbs. oz. kg; 30.00 BMI Method: General Appearance: WD/WN, no apparent distress HEENT: PERRL/EOMI, normal ENT inspection, pharynx normal Neck: non-tender, supple Cardiovascular: regular rate, rhythm, no murmur Respiratory: lungs clear, normal breath sounds, no respiratory distress, other (Tenderness to palpation left posterior lateral chest wall just lateral to the scapula. No crepitus or deformity. Equal breath sounds bilaterally.) Gastrointestinal: normal bowel sounds, non tender, soft, no organomegaly Back: normal inspection, no CVA tenderness, no vertebral tenderness Extremities: normal range of motion, non-tender, normal inspection, no pedal edema, no calf tenderness Neurologic/Psychiatric: no motor/sensory deficits, alert, normal mood/affect, oriented x 3 Skin: normal color, warm/dry Lymphatic: no adenopathy Progress/Results/Core Measures Results/Orders My Orders Orders - ROHITADILSON BAYNETH L DO Chest 1 View Ap/Pa Only (05/02/22 02:45) Ketorolac Injection (Toradol Injection) (05/02/22 02:45) Loperamide Tablet (Imodium Tablet) (05/02/22 03:15) Medications Given in ED Current Medications Medications Dose Ordered Sig/Alexia Route Start Time Stop Time Status Last Admin Dose Admin Ketorolac Tromethamine 15 mg ONCE ONCE IM 05/02/22 02:45 05/02/22 02:47 DC 05/02/22 02:54 15 MG Vital Signs/I&O 05/02/22 02:39 Temp 36.5 Pulse 113 Resp 20 B/P (MAP) 111/58 (75) Pulse Ox 100 O2 Delivery Room Air Departure Communication (Admissions) Patient is hemodynamically stable. She has chest wall type pain with no pain elsewhere outside of very mild pain in her lateral neck. There is no midline tenderness here. No indication for CT scanning of her cervical spine. She did not hit her head or lose consciousness, not on any blood thinning medication so there is no indication for head CT. Chest x-ray shows no obvious broken ribs, normal scapula. No pneumothorax, hemothorax. He is given Toradol here and disc harged with recommendations for Tylenol, ibuprofen alternated given her history of narcotic abuse we will avoid these at this time. She does tell me she is reluctant to take anti-inflammatories as they hurt her stomach sometimes. I told her that for the next couple of days it would likely be fine, to be sure to take them with food. Is about to discharge her she states she has had diarrhea for about a week. She does not have any medications at home have been working, though she has tried Pepto. She request something for diarrhea. I gave her Imodium here and told her to pick some up [id number] as well. She has no other traumatic injuries. She has been ambulatory since the event Impression Primary Impression: Acute chest wall pain Additional Impression: Fall Qualified Codes: W19.XXXA - Unspecified fall, initial encounter Disposition: HOME, SELF-CARE Condition: Stable Departure-Patient Inst. Referrals: SELF,CHOLO VILLARREAL (PCP/Family) Primary Care Physician Patient Instructions: Preventing Falls ED, Acute Pain, Adult (DC) Add. Discharge Instructions: Alternate ibuprofen and Tylenol as needed for the next couple of days for pain. Take the ibuprofen with food so as not to upset your stomach. Increase your fluids at home. Make sure you are taking deep breaths at home despite the pain to avoid getting pneumonia. Return to the emergency department for any severe concerns. Follow-up with your primary doctor in the next 48 hours for recheck. KAVYA BEE DO May 02, 2022 02:51
[2022-05-02] MEDS ORDERED: LOPERAMIDE 2 MG (IMODIUM) TABLET PO ONE (03:15)
[2022-05-02 03:16] VITALS: BP 111/58
[2022-05-02] MEDS ORDERED: ACHD5005 PO (04:23)
--- NOTE | 2022-05-02 06:26 | Diagnostic Imaging Report ---
CHEST 1 VIEW AP/PA ONLY Indication: Chest pain. Comparison: 03/15/2022 Findings: No focal airspace disease in the visualized lungs. No pleural effusion or pneumothorax. Normal cardiomediastinal silhouette. No displaced fracture within the visible ribs. Impression: 1. No acute cardiopulmonary process by portable radiography. Dictated by: Dictated on workstation # [id number]
== END 2022-05-02 03:18 | disposition home or self-care (01) ==
LOC: EDUNIT# 02:38 → ER FS 02:38
DX: R07.89 Other chest pain (principal); M54.2 Cervicalgia; R19.7 Diarrhea, unspecified; Z28.310 Unvaccinated for COVID-19; W01.0XXA Fall on same level from slipping, tripping and stumbling without subsequent striking against object, initial encounter
CPT/HCPCS: 71045

== ENCOUNTER 2022-05-02 03:49 | Emergency (ER) | payer MEDICAID ==
[~2022-05-02] VITALS: Ht 165.1 cm; Wt 72.5 kg
--- NOTE | 2022-05-02 04:00 | ED Fall/Injury ---
General Stated Complaint: FALL Source: patient Exam Limitations: no limitations History of Present Illness Date Seen by Provider: May 02, 2022 Time Seen by Provider: 03:46 Initial Comments 61-year-old female presents to the emergency department for right wrist and right ankle pain. She was just discharged from our facility. She obtained a ride and was walking to the car and stepped off the curb and fell down again. She states she simply tripped. She did not lose consciousness. She complains mostly of right wrist pain. She does have some pain to the lateral aspect of right ankle as well. No other injuries. Allergies and Home Medications Allergies Coded Allergies: No Known Drug Allergies (Unverified , 07/20/19) Patient Home Medication List Home Medication List Reviewed: Yes Cyclobenzaprine HCl (Cyclobenzaprine HCl) 10 Mg Tablet, 10 MG PO Q8H PRN for SPASMS Prescribed by: GERALD LUGO on 07/20/19 1021 Hydrocodone Bit/Acetaminophen (HYDROcodone/APAP 5 MG/325 MG TAB) 1 Tab Tab, 1 TAB PO Q6H Prescribed by: KAVYA BEE MD on 05/02/22 0424 Ondansetron (Ondansetron Odt) 4 Mg Tab.rapdis, 4 MG PO Q6H PRN for NAUSEA/VOMITING Prescribed by: GERALD LUGO on 07/20/19 1021 Ondansetron (Ondansetron Odt) 4 Mg Tab.rapdis, 4 MG SL Q4H PRN for NAUSEA/VOMITING Prescribed by: APRIL ALDANA on 03/15/221910 Pantoprazole Sodium (Protonix) 40 Mg Tablet.dr, 40 MG PO DAILY Prescribed by: APRIL ALDANA on 03/15/221910 Potassium Chloride (Potassium Chloride) 10 Meq Tab.er.prt, 10 MEQ PO DAILY Prescribed by: APRIL ALDANA on 03/15/221910 Review of Systems Review of Systems Constitutional: no symptoms reported Eyes: No Symptoms Reported Ears, Nose, Mouth, Throat: no symptoms reported Respiratory: no symptoms reported Cardiovascular: no symptoms reported Gastrointestinal: no symptoms reported Genitourinary: no symptoms reported Musculoskeletal: joint pain Skin: no symptoms reported Psychiatric/Neurological: No Symptoms Reported Past Tfqbjkg-Mpoddp-Phanad Hx Patient Social History Tobacco Use?: No Use of E-Cig and/or Vaping dev: No Substance use?: No Alcohol Use?: No Seasonal Allergies Seasonal Allergies: No Past Medical History Surgery/Hospitalization HX: breast ca Respiratory: No Cardiac: No Neurological: No Genitourinary: No Gastrointestinal: No Musculoskeletal: Yes Arthritis, Chronic Back Pain Endocrine: No HEENT: No Cancer: No Psychosocial: Yes Anxiety, Depression Integumentary: No Blood Disorders: No Family Medical History Reviewed Nursing Family Hx No Pertinent Family Hx Physical Exam Vital Signs Vital Signs - First Documented Capillary Refill : Height, Weight, BMI Height: '" Weight: lbs. oz. kg; 30.00 BMI Method: General Appearance: WD/WN, no apparent distress HEENT: normal ENT inspection, pharynx normal Neck: non-tender, full range of motion, supple, normal inspection Cardiovascular: regular rate, rhythm, no murmur Respiratory: chest non-tender, lungs clear, normal breath sounds, no respiratory distress, no accessory muscle use Gastrointestinal: normal bowel sounds, non tender, soft, no organomegaly Back: normal inspection, no CVA tenderness, no vertebral tenderness Extremities: normal range of motion, normal inspection, normal capillary refill, other (Tenderness palpation right wrist diffusely. There is mild deformity. Neurovascular motor and sensory intact. Tenderness palpation right ankle. There is a small abrasion to the lateral malleolus. Normal range of motion. Neurovascular motor and sensory intact.) Neurologic/Psychiatric: alert, normal mood/affect, oriented x 3 Skin: other (abrasion lateral malleolus R ankle) Procedures/Interventions Splinting and Joint Reduction : Location: R wrist Pre-Proc Neuro Vasc Exam: normal Post-Proc Neuro Vasc Exam: normal Reduction Attempts: 1 Pre-Procedure NV Exam: Yes post joint reduction film: joint reduced Kumar wrap: Yes Arm Sling: [place] Hand-Made Type: orthoglass Splint Application: Long Arm (sugar tong) Progress procedural sedation: Consent obtained. Patient placed on O2 with ET CO2 monitoring. She maintained O2 saturation and RR throughout the procedure. No hypotension. She was given 50 of propofol and 50 of fentanyl. She tolerated procedure well without complication. Total sedation time 5 minutes. Progress/Results/Core Measures Results/Orders My Orders Orders - KAVYA BEE DO Wrist 3 View Right (05/02/22 03:54) Ankle 3 View Right (05/02/22 03:54) Iv/Invasive Line Insertion .IV INSERT (05/02/22 04:08) Fentanyl Inj (Sublimaze Injection) (05/02/22 04:15) Propofol Injection (Diprivan Injection) (05/02/22 04:15) Wrist 2 View Right (05/02/22 04:43) Medications Given in ED Current Medications Medications Dose Ordered Sig/Alexia Route Start Time Stop Time Status Last Admin Dose Admin Fentanyl Citrate 50 mcg ONCE ONCE IVP 05/02/22 04:15 05/02/22 04:16 DC 05/02/22 04:30 50 MCG Propofol 75 mg ONCE ONCE IV 05/02/22 04:15 05/02/22 04:16 DC 05/02/22 04:36 75 MG Vital Signs/I&O 05/02/22 05/02/22 03:51 03:51 Temp 36.6 36.6 Pulse 102 102 Resp 18 18 B/P (MAP) 92/44 (60) 92/44 (60) Pulse Ox 98 98 O2 Delivery Room Air Room Air Departure Communication (Admissions) Patient has R distal radius fracture. No other traumatic injury. This was reduced at bedside, patient tolerated reduction and sedation well without complication. Xrays show good reduction. Given ortho follow up. Post splint eval shows right extremity neurovascular intact. Ankle xrays negative. She has no evidence of head injury or other traumatic injury. Impression Primary Impression: Right ankle pain Qualified Codes: M25.571 - Pain in right ankle and joints of right foot Additional Impression: Fracture of right distal radius Qualified Codes: S52.531A - Colles' fracture of right radius, initial encounter for closed fracture Disposition: 01 HOME, SELF-CARE Condition: Stable Departure-Patient Inst. Referrals: GOLDEN GEORGE MD SELF,CHOLO VILLARREAL (PCP/Family) Primary Care Physician Patient Instructions: Forearm and Wrist Fractures ED Add. Discharge Instructions: Use pain medication as prescribed as needed. Ice the areas in question. Call to schedule an appoint with Dr. George. Return to the emergency department for any severe concerns. Scripts Hydrocodone Bit/Acetaminophen (HYDROcodone/APAP 5 MG/325 MG TAB) 1 Tab Tab 1 TAB PO Q6H for Pain for 3 Days, #12 TAB Prov: KAVYA BEE DO 05/02/22 KAVYA BEE DO May 02, 2022 04:00
[2022-05-02] MEDS ORDERED: proPOfol 200 MG/20 ML (DIPRIVAN) VIAL IV ONE (04:15)
[2022-05-02] MEDS ORDERED: fentaNYL INJ 100 MCG/2 ML AMP IVP ONE (04:15)
[2022-05-02] MEDS ORDERED: ACHD5005 PO (04:23)
[2022-05-02 05:03] VITALS: BP 108/50
--- NOTE | 2022-05-02 06:08 | Diagnostic Imaging Report ---
ANKLE 3 VIEW RIGHT COMPARISON: None available. INDICATION: Right ankle pain after fall TECHNIQUE: Non-weight bearing AP, oblique, and lateral views. FINDINGS: No fracture or traumatic malalignment. No osteochondral lesion of the talar dome. The Achilles shadow is normal. IMPRESSION: 1. No acute fracture or traumatic malalignment. Dictated by: Dictated on workstation # [id number]
--- NOTE | 2022-05-02 06:22 | Diagnostic Imaging Report ---
WRIST 3 VIEW RIGHT INDICATION: Wrist pain after fall COMPARISON: None available. TECHNIQUE: 3 views of the right wrist FINDINGS: There is an acute, mildly comminuted fracture of the distal radius. The dominant transverse fractures located in the metaphyseal region and there is dorsal angulation of approximately 20 degrees involving the articular surface. Linear fracture line extends along the volar cortex of the distal radial diaphysis. Simple transverse fracture through the base of the ulnar styloid is also present. Moderate degenerative changes at the triscaphe joint. IMPRESSION: 1. Acute, mildly comminuted fracture distal radius has dorsal angulation of the articular surface. However, there does not appear to be intra-articular extension. 2. Nondisplaced ulnar styloid fracture. Dictated by: Dictated on workstation # [id number]
--- NOTE | 2022-05-02 06:54 | Diagnostic Imaging Report ---
WRIST 2 VIEW RIGHT INDICATION: Status post reduction of distal radial fracture COMPARISON: Earlier same day at 3:57 AM TECHNIQUE: 2 views of right wrist FINDINGS: A fiberglass sugar-tong splint has been placed. The mildly comminuted distal radial fracture maintains similar alignment with approximately 15 degrees of dorsal angulation. Ulnar styloid fracture is in stable position. Stable degenerative changes. IMPRESSION: Similar alignment of distal radial fracture and ulnar styloid fracture status post splinting. Dictated by: Dictated on workstation # [id number]
== END 2022-05-02 05:10 | disposition home or self-care (01) ==
LOC: EDUNIT# 03:49 → ER FS 03:50
DX: S52.501A Unspecified fracture of the lower end of right radius, initial encounter for closed fracture (principal); S90.511A Abrasion, right ankle, initial encounter; Z28.310 Unvaccinated for COVID-19; W01.0XXA Fall on same level from slipping, tripping and stumbling without subsequent striking against object, initial encounter; Y93.01 Activity, walking, marching and hiking
CPT/HCPCS: 73100; 73110; 73610; 93041

== ENCOUNTER 2022-05-03 14:16 | Emergency (ER) | payer MEDICAID ==
[~2022-05-03 14:16] MED LIST changes: +ACHD5005 PO
[2022-05-03] MEDS ORDERED: KETAMINE 50 MG/5 ML SYRINGE IV ONE (14:20)
[2022-05-03] MEDS ORDERED: fentaNYL INJ 100 MCG/2 ML AMP IV ONE (14:20)
[2022-05-03] MEDS ORDERED: ROCURONIUM 10 MG/ML 5 ML SYRINGE IV ONE ×2 (14:20→16:15)
[2022-05-03] MEDS ORDERED: MIDAZOLAM 5 MG/5 ML (VERSED) VIAL IJ ONE (14:20)
[2022-05-03] MEDS ORDERED: NS IV 1000 ML 2,000 ML ONE (14:26)
[2022-05-03] MEDS ORDERED: CEFEPIME INJECTION 1,000 MG in NS (IVPB) 50 ML IV ONE (14:30)
[2022-05-03 14:39] LABS: BASOPHILS # (AUTO) 0.1 10^3/uL (0.0-0.1); BASOPHILS % (AUTO) 0 % (0-10); EOSINOPHILS % (AUTO) 0 % (0-10); HEMATOCRIT 31 % (35-52); LYMPHOCYTES # (AUTO) 1.7 10^3/uL (1.0-4.0); LYMPHOCYTES % (AUTO) 4 % (12-44); MEAN CORPUSCULAR HEMOGLOBIN 32 pg (25-34); MEAN CORPUSCULAR HGB CONC 36 g/dL (32-36); MEAN CORPUSCULAR VOLUME 88 fL (80-99); MONOCYTES # (AUTO) 0.7 10^3/uL (0.0-1.0); MONOCYTES % (AUTO) 2 % (0-12); NEUTROPHILS # (AUTO) 35.8 10^3/uL (1.8-7.8); NEUTROPHILS % (AUTO) 88 % (42-75); PLATELET COUNT 344 10^3/uL (130-400)
[2022-05-03 14:42] LABS: WHITE BLOOD COUNT 40.6 10^3/uL (4.3-11.0)
[2022-05-03] MEDS ORDERED: NS 100 ML (IVPB) BAG IV ONE (14:45)
[2022-05-03] MEDS ORDERED: HOLD METFORMIN - RECEIVED CONTRAST 20 ML VIAL IV SCH (14:45)
[2022-05-03] MEDS ORDERED: NS IV 1000 ML 1,000 ML IV STA (14:45)
[2022-05-03] MEDS ORDERED: IOHEXOL 350 MG/ML 100 ML (OMNIPAQUE 350) VIAL IV ONE (14:45)
[2022-05-03 14:54] LABS: INR 2.7 (0.8-1.4); PROTHROMBIN TIME PATIENT 28.8 SEC (12.2-14.7)
--- NOTE | 2022-05-03 14:58 | Diagnostic Imaging Report ---
Indication: Shortness of breath Frontal chest obtained 0238 p.m. ET tube tip overlies mid trachea. Heart and mediastinal silhouette are normal in appearance. The lungs are clear. There is no pneumothorax or pleural fluid. There are old right-sided rib fractures. IMPRESSION: ET tube tip overlies mid to lower trachea. No acute infiltrate or pneumothorax or pleural fluid. Dictated by: Dictated on workstation # [id number]
[2022-05-03 14:59] LABS: BAND NEUTROPHILS 15 %; BASOPHILS % (MANUAL) 0 %; EOSINOPHILS % (MANUAL) 3 %; LYMPHOCYTES % (MANUAL) 8 %; METAMYELOCYTES % 2 %; MONOCYTES % (MANUAL) 2 %; NEUTROPHILS % (MANUAL) 70 %
[2022-05-03 15:10] LABS: SODIUM 118 MMOL/L (135-145)
[2022-05-03 15:12] LABS: BILIRUBIN,TOTAL 0.4 MG/DL (0.1-1.0); BUN/CREATININE RATIO 6; CALCIUM 8.4 MG/DL (8.5-10.1); CHLORIDE 76 MMOL/L (98-107); CREATININE SERUM 3.65 MG/DL (0.60-1.30); GFR ESTIMATED 13; GLUCOSE 164 MG/DL (70-105); POTASSIUM 3.5 MMOL/L (3.6-5.0)
[2022-05-03 15:13] LABS: ALANINE AMINOTRANSFERASE 14 U/L (0-55); ALBUMIN 3.2 GM/DL (3.2-4.5); ALKALINE PHOSPHATASE 139 U/L (40-136)
[2022-05-03 15:14] LABS: CARBON DIOXIDE 4 MMOL/L (21-32)
--- NOTE | 2022-05-03 15:23 | ED Respiratory ---
General Stated Complaint: RESPIRATORY DISTRESS Source: EMS Exam Limitations: clinical condition History of Present Illness Date Seen by Provider: May 03, 2022 Time Seen by Provider: 14:16 Initial Comments 61-year-old female with unknown past medical history coming in via EMS from home initially with a call for abdominal pain with her screaming in pain. Her neighbors called for her. On arrival she was barely responsive, oxygen saturation in the 70s. Became less responsive on route to the ER and required bagging by EMS. Glucose was just over 100, blood pressure was 130 systolic, tachycardic to the 120s. She reported hydrocodone use prior to going unresponsive so they gave her 2 mg of Narcan with minimal change. Further elements of the history and physical were unable to be obtained because the patient was unresponsive on arrival. Allergies and Home Medications Allergies Coded Allergies: No Known Drug Allergies (Unverified , 07/20/19) Patient Home Medication List Home Medication List Reviewed: Yes Cyclobenzaprine HCl (Cyclobenzaprine HCl) 10 Mg Tablet, 10 MG PO Q8H PRN for SPASMS Prescribed by: GERALD LUGO on 07/20/19 1021 Hydrocodone Bit/Acetaminophen (HYDROcodone/APAP 5 MG/325 MG TAB) 1 Tab Tab, 1 TAB PO Q6H Prescribed by: KAVYA BEE MD on 05/02/22 0424 Ondansetron (Ondansetron Odt) 4 Mg Tab.rapdis, 4 MG PO Q6H PRN for NAUSEA/VOMITING Prescribed by: GERALD LUGO on 07/20/19 1021 Ondansetron (Ondansetron Odt) 4 Mg Tab.rapdis, 4 MG SL Q4H PRN for NAUSEA/VOMITING Prescribed by: APRIL ALDANA on 03/15/221910 Pantoprazole Sodium (Protonix) 40 Mg Tablet.dr, 40 MG PO DAILY Prescribed by: APRIL ALDANA on 03/15/221910 Potassium Chloride (Potassium Chloride) 10 Meq Tab.er.prt, 10 MEQ PO DAILY Prescribed by: APRIL ALDANA on 03/15/221910 Review of Systems Review of Systems Constitutional: No fever All Other Systems Reviewed Negative Unless Noted: Yes Past Pvalunt-Cskifj-Heyhiq Hx Seasonal Allergies Seasonal Allergies: No Past Medical History Surgery/Hospitalization HX: breast ca Respiratory: No Cardiac: No Neurological: No Genitourinary: No Gastrointestinal: No Musculoskeletal: Yes Arthritis, Chronic Back Pain Endocrine: No HEENT: No Cancer: No Psychosocial: Yes Anxiety, Depression Integumentary: No Blood Disorders: No Family Medical History No Pertinent Family Hx Physical Exam Vital Signs - First Documented 05/03/22 05/03/22 15:00 15:29 Temp 35.6 Pulse 114 Resp 14 B/P (MAP) 134/42 (72) Capillary Refill : Height: '" Weight: lbs. oz. kg; 26.00 BMI Method: General Appearance: other (Unresponsive, breathing rapidly with accessory muscle use) Eyes: Bilateral Eye Normal Inspection, Bilateral Eye PERRL (Pupils 4 mm matt aterally) HEENT: PERRL/EOMI Neck: full range of motion Respiratory: lungs clear, normal breath sounds, accessory muscle use, other (Increased respiratory rate) Cardiovascular: no edema, tachycardia Gastrointestinal: soft Extremities: normal range of motion, other (Right lower extremity with an Kumar bandage, right upper extremity with a splint in place, normal distal pulses) Neurologic/Psychiatric: other (Eyes open, mumbling, not answering questions, is moving extremities) Skin: other (Skin is cool but no rash) Focused Exam Lactate Level 05/03/22 14:30: Lactic Acid Level 17.44*H 05/03/22 16:39: Lactic Acid Level 12.27*H Lactic Acid Level Laboratory Tests Test 05/03/22 14:30 05/03/22 16:39 Lactic Acid Level 17.44 MMOL/L (0.50-2.00) *H 12.27 MMOL/L (0.50-2.00) *H Procedures/Interventions Lumen: triple Position: internal jugular (R) (Chlorhexidine prep) Complications: none Post Position: sutured, good blood return, position confirmed w/ CXR Ultrasound guidance was used in real-time with no complications Date of ETT Placement: May 03, 2022 Intubation Method: orotracheal Tube Size: 7.5 Medications: Rocuronium (And ketamine) Positive End Tide CO2: Yes Breath Sounds after Intubation: bilateral-equal Intubation Complications: no complications Post Intubation Xray: Yes ET tube in good positioning above the apryl The patient saturation was in the 70s at [facility] prior to intubation, ABG with PaO2 in the 300s confirming that the O2 sat is unreliable Progress/Results/Core Measures Suspected Sepsis SIRS Temperature: Pulse: Respiratory Rate: Laboratory Tests 05/03/22 14:30: White Blood Count 40.6*H Blood Pressure / Mean: 05/03/22 14:30: Lactic Acid Level 17.44*H 05/03/22 16:39: Lactic Acid Level 12.27*H Laboratory Tests 05/03/22 14:30: Creatinine 3.65H, INR Comment 2.7H, Platelet Count 344, Total Bilirubin 0.4 05/03/22 18:09: Creatinine 3.26H Results/Orders Lab Results Laboratory Tests Test 05/03/22 14:30 05/03/22 15:22 05/03/22 15:40 05/03/22 16:39 Range/Units White Blood Count 40.6 *H 4.3-11.0 10^3/uL Red Blood Count 3.49 L 3.80-5.11 10^6/uL Hemoglobin 11.0 L 11.5-16.0 g/dL Hematocrit 31 L 35-52 % Mean Corpuscular Volume 88 80-99 fL Mean Corpuscular Hemoglobin 32 25-34 pg Mean Corpuscular Hemoglobin Concent 36 32-36 g/dL Red Cell Distribution Width 16.6 H 10.0-14.5 % Platelet Count 344 130-400 10^3/uL Mean Platelet Volume 10.0 9.0-12.2 fL Immature Granulocyte % (Auto) 6 % Neutrophils (%) (Auto) 88 H 42-75 % Lymphocytes (%) (Auto) 4 L 12-44 % Monocytes (%) (Auto) 2 0-12 % Eosinophils (%) (Auto) 0 0-10 % Basophils (%) (Auto) 0 0-10 % Neutrophils # (Auto) 35.8 H 1.8-7.8 10^3/uL Lymphocytes # (Auto) 1.7 1.0-4.0 10^3/uL Monocytes # (Auto) 0.7 0.0-1.0 10^3/uL Eosinophils # (Auto) 0.0 0.0-0.3 10^3/uL Basophils # (Auto) 0.1 0.0-0.1 10^3/uL Immature Granulocyte # (Auto) 2.3 H 0.0-0.1 10^3/uL Neutrophils % (Manual) 70 % Lymphocytes % (Manual) 8 % Monocytes % (Manual) 2 % Eosinophils % (Manual) 3 % Basophils % (Manual) 0 % Metamyelocytes % 2 % Band Neutrophils 15 % Prothrombin Time 28.8 H 12.2-14.7 SEC INR Comment 2.7 H 0.8-1.4 Activated Partial Thromboplast Time 63 H 24-35 SEC Sodium Level 118 *L 135-145 MMOL/L Potassium Level 3.5 L 3.6-5.0 MMOL/L Chloride Level 76 L 98-107 MMOL/L Carbon Dioxide Level 4 *L 21-32 MMOL/L Anion Gap 38 H 5-14 MMOL/L Blood Urea Nitrogen 22 H 7-18 MG/DL Creatinine 3.65 H 0.60-1.30 MG/DL Estimat Glomerular Filtration Rate 13 BUN/Creatinine Ratio 6 Glucose Level 164 H 70-105 MG/DL Lactic Acid Level 17.44 *H 12.27 *H 0.50-2.00 MMOL/L Calcium Level 8.4 L 8.5-10.1 MG/DL Corrected Calcium 9.0 8.5-10.1 MG/DL Magnesium Level 2.0 1.6-2.4 MG/DL Total Bilirubin 0.4 0.1-1.0 MG/DL Aspartate Amino Transf (AST/SGOT) 33 5-34 U/L Alanine Aminotransferase (ALT/SGPT) 14 0-55 U/L Alkaline Phosphatase 139 H 40-136 U/L Troponin I < 0.30 <0.30 NG/ML Pro-B-Type Natriuretic Peptide 14338.0 H <125.0 PG/ML Total Protein 6.0 L 6.4-8.2 GM/DL Albumin 3.2 3.2-4.5 GM/DL Blood Gas Puncture Site RT RADIAL Blood Gas Patient Temperature 95.8 Arterial Blood pH 6.89 *L 7.37-7.43 Arterial Blood Partial Pressure CO2 33 L 35-45 MMHG Arterial Blood Partial Pressure O2 333 H 79-93 MMHG Arterial Blood HCO3 6 *L 23-27 MMOL/L Arterial Blood Total CO2 7.3 *L 21.0-31.0 MMOL/L Arterial Blood Oxygen Saturation 100 94-100 % Arterial Blood Base Excess -26.0 L -2.5-2.5 MMOL/L Moisés Test Blood Gas Ventilator Setting YES Blood Gas Inspired Oxygen 100% Influenza Type A (RT-PCR) Not Detected Not Detecte Influenza Type B (RT-PCR) Not Detected Not Detecte SARS-CoV-2 RNA (RT-PCR) Detected H Not Detecte Venous Blood pH 7.09 L 7.31-7.41 Venous Blood Partial Pressure CO2 27 L 40-52 MMHG Venous Blood HCO3 8 L 22-28 MMOL/L Test 05/03/22 17:19 05/03/22 18:07 05/03/22 18:09 Range/Units Urine Color YELLOW Urine Clarity CLOUDY Urine pH 5.0 5-9 Urine Specific Newman 1.025 H 1.016-1.022 Urine Protein 2+ H NEGATIVE Urine Glucose (UA) NEGATIVE NEGATIVE Urine Ketones NEGATIVE NEGATIVE Urine Nitrite NEGATIVE NEGATIVE Urine Bilirubin NEGATIVE NEGATIVE Urine Urobilinogen 0.2 < = 1.0 MG/DL Urine Leukocyte Esterase 2+ H NEGATIVE Urine RBC (Auto) 1+ H NEGATIVE Urine RBC RARE /HPF Urine WBC 5-10 H /HPF Urine Squamous Epithelial Cells 2-5 /HPF Urine Crystals NONE /LPF Urine Bacteria LARGE H /HPF Urine Casts NONE /LPF Urine Mucus NEGATIVE /LPF Urine Culture Indicated YES Glucometer 122 H 70-110 MG/DL Blood Gas Puncture Site LT AC Blood Gas Patient Temperature 35.9 Arterial Blood pH 7.19 *L 7.37-7.43 Arterial Blood Partial Pressure CO2 23 L 35-45 MMHG Arterial Blood Partial Pressure O2 536 H 79-93 MMHG Arterial Blood HCO3 9 *L 23-27 MMOL/L Arterial Blood Total CO2 9.5 *L 21.0-31.0 MMOL/L Arterial Blood Oxygen Saturation 100 94-100 % Arterial Blood Base Excess -17.6 L -2.5-2.5 MMOL/L Moisés Test OK Blood Gas Ventilator Setting YES Blood Gas Inspired Oxygen 100% Sodium Level 122 *L 135-145 MMOL/L Potassium Level 3.0 L 3.6-5.0 MMOL/L Chloride Level 83 L 98-107 MMOL/L Carbon Dioxide Level 8 *L 21-32 MMOL/L Anion Gap 31 H 5-14 MMOL/L Blood Urea Nitrogen 21 H 7-18 MG/DL Creatinine 3.26 H 0.60-1.30 MG/DL Estimat Glomerular Filtration Rate 15 BUN/Creatinine Ratio 6 Glucose Level 141 H 70-105 MG/DL Calcium Level 7.5 L 8.5-10.1 MG/DL My Orders Orders - JESSY MOON MD Ns Iv 1000 Ml (Sodium Chloride 0.9%) (05/03/22 14:26) Cbc With Automated Diff (05/03/22 14:29) Comprehensive Metabolic Panel (05/03/22 14:29) Blood Culture (05/03/22 14:29) Urinalysis (05/03/22 14:29) Protime With Inr (05/03/22 14:29) Partial Thromboplastin Time (05/03/22 14:29) Chest 1 View Ap/Pa Only (05/03/22 14:29) Ed Iv/Invasive Line Start (05/03/22 14:29) Ed Iv/Invasive Line Start (05/03/22 14:29) Ekg Tracing (05/03/22 14:29) Vital Signs Adult Sepsis Patie Q15M (05/03/22 14:29) O2 (05/03/22 14:29) Remove Rings In Anticipation O (05/03/22 14:29) Lactic Acid Analyzer (05/03/22 14:29) Influenza A And B By Pcr (05/03/22 14:29) Cefepime Injection (Maxipime Injection) (05/03/22 14:30) Covid 19 Inhouse Test (05/03/22 14:29) Magnesium (05/03/22 14:29) Probnp Fs (05/03/22 14:29) Troponin I Fs (05/03/22 14:29) Ct Head/Cervical Spine Wo (05/03/22 14:29) Iohexol Injection (Omnipaque 350 Mg/Ml 1 (05/03/22 14:45) Received Contrast (Hold Metformin- Contr (05/03/22 14:45) Ns (Ivpb) (Sodium Chloride 0.9% Ivpb Bag (05/03/22 14:45) Manual Differential (05/03/22 14:15) Arterial Blood Gas (05/03/22 14:45) Catheter(Urinary) Insert & Ass 03,15 (05/03/22 14:45) Og Tube Insertion (05/03/22 14:45) Ns Iv 1000 Ml (Sodium Chloride 0.9%) (05/03/22 14:45) Ct Livia Chest/Noang Abd-Pelv W (05/03/22 14:29) Albuterol/Ipra Inhalation Soln (Duoneb I (05/03/22 15:45) Sodium Bicarbonate 8.4% Syr (Sodium Bica (05/03/22 15:45) Albuterol/Ipra Inhalation Soln (Duoneb I (05/03/22 15:34) Lactated Ringers (Lr 1000 Ml Iv Solution (05/03/22 15:45) Venous Blood Gas (05/03/22 15:55) Ketamine Injection (Ketalar Injection) (05/03/22 16:00) Rocuronium 5 Ml Syringe (Rocuronium 5 Ml (05/03/22 16:15) Fentanyl Inj (Sublimaze Injection) (05/03/22 16:30) Fentanyl Inj (Sublimaze Injection) (05/03/22 16:30) Midazolam Injection (Versed Injection) (05/03/22 16:30) Midazolam Injection (Versed Injection) (05/03/22 16:30) Lactated Ringers (Lr 1000 Ml Iv Solution (05/03/22 15:45) Lactated Ringers (Lr 1000 Ml Iv Solution (05/03/22 16:45) Norepinephrine 8 Mg/250 Ml (Norepinephri (05/03/22 16:45) Norepinephrine 8 Mg/250 Ml (Norepinephri (05/03/22 16:31) Chest 1 View Ap/Pa Only (05/03/22 16:48) Basic Metabolic Panel (05/03/22 18:00) D5w 1000 Ml Iv Solution (Dextrose 5% Yenifer (05/03/22 17:21) Sodium Bicarbonate 8.4% Syr (Sodium Bica (05/03/22 17:30) Urine Culture (05/03/22 17:19) Sodium Bicarbonate 8.4% Syr (Sodium Bica (05/03/22 17:28) Arterial Blood Gas (05/03/22 18:01) Medications Given in ED Current Medications Medications Dose Ordered Sig/Alexia Route Start Time Stop Time Status Last Admin Dose Admin Albuterol/ Ipratropium 3 ml STK-MED ONCE .ROUTE 05/03/22 15:34 05/03/22 15:37 DC 05/03/22 15:43 3 ML Cefepime HCl 1000 mg/Sodium Chloride 50 ml @ 100 mls/hr ONCE ONCE IV 05/03/22 14:30 05/03/22 14:59 DC 05/03/22 15:43 100 MLS/HR Fentanyl Citrate 50 mcg ONCE ONCE IVP 05/03/22 16:30 05/03/22 16:31 DC 05/03/22 14:44 50 MCG Fentanyl Citrate 50 mcg ONCE ONCE IVP 05/03/22 16:30 05/03/22 16:31 DC 05/03/22 14:44 50 MCG Iohexol 100 ml ONCE ONCE IV 05/03/22 14:45 05/03/22 14:46 DC 05/03/22 15:25 100 ML Ketamine HCl 100 mg ONCE ONCE IM 05/03/22 16:00 05/03/22 16:05 DC 05/03/22 14:36 100 MG Midazolam HCl 5 mg ONCE ONCE IVP 05/03/22 16:30 05/03/22 16:31 DC 05/03/22 14:44 5 MG Rocuronium [facility] TO DOSE ONCE ONCE IV 05/03/22 16:15 05/03/22 16:16 DC 05/03/22 14:37 40 MG Sodium Bicarbonate 50 meq ONCE ONCE IV 05/03/22 15:45 05/03/22 15:46 DC 05/03/22 15:46 50 MEQ Sodium Bicarbonate 150 meq ONCE ONCE IV 05/03/22 17:30 05/03/22 17:31 DC 05/03/22 17:36 150 MEQ Sodium Chloride 100 ml ONCE ONCE IV 05/03/22 14:45 05/03/22 14:46 DC 05/03/22 15:26 40 ML Sodium Chloride 2,000 ml @ STK-MED ONCE .ROUTE 05/03/22 14:26 05/03/22 14:28 DC 05/03/22 14:30 2,000 MLS/HR Vital Signs/I&O 05/03/22 05/03/22 05/03/22 05/03/22 14:26 14:26 15:00 15:29 Temp 35.6 Pulse 114 107 Resp 14 20 B/P (MAP) 134/42 (72) 114/42 (66) Pulse Ox 72 90 O2 Delivery Ambu Bag Ambu Bag Mechanical Ventilator O2 Flow Rate 50.00 50.00 50.00 100.00 100.00 FiO2 100 05/03/22 05/03/22 05/03/22 05/03/22 15:35 17:01 17:35 17:46 Pulse 106 107 109 Resp 20 B/P (MAP) 96/46 117/52 122/51 Pulse Ox 79 O2 Delivery Mechanical Ventilator Mechanical Ventilator FiO2 100 Capillary Refill : Progress Note : Progress Note 61-year-old female with above history coming in unresponsive in respiratory distress. On arrival the patient was hypotensive to the 80s systolic. She had IV access with an 18-gauge by EMS, another access point was obtained. She was given 2 L bolus of IV fluids with increasing blood pressure to around the 130 systolic. At that time attention was turned to her airway given concerns for decreased mental status and we were unable to really get a good oxygen saturation at that moment. She was intubated with ketamine and rocuronium as RSI. This was done in a single attempt with no complications. Chest x-ray confirmed ET tube placement after. We started to get an oxygen saturation in the 70s after ET tube placement. Her FiO2 was already at 100%, so her PEEP was turned up. ABG obtained at that time with a PaO2 greater than 300. This is consistent with an oxygen saturation in the 90s at least. Her extremities did feel slightly cold, it is likely why were not getting a good reading on her O2 saturation. She was given cefepime given concerns for infection empirically. An EKG was obtained interpreted by me showing no STEMI. The patient went for CT head, cervical spine, chest, abdomen, and pelvis due to concerns for fall yesterday with multiple potential injuries including rib fractures, splenic laceration, liver laceration, or other etiologies. The chest CT was a CTA to rule out PE. CT imaging concerning for infarct to her kidneys and spleen. COVID test was positive which is the only explanation I would have at this point as to the cause of this. The patient's INR is elevated, but platelets are normal, does not fit a full clinical picture of DIC. Fibrinogen not available at this hospital location within any amount of time that would be clinically relevant. I called and discussed the case with [facility] E-ICU physician for consultation who recommended continued fluid resuscitation and repeat lactic acid. Repeat lactic acid was 12, and repeat pH just under 7.1. I called and discussed the case with the physician on-call in the intensive care unit. He recommended starting a sodium bicarb drip which we were able to make up with D5W 1 L with 150 mill equivalents of sodium bicarb running at 200 cc an hour. Patient producing roughly 1 cc of urine during her ER stay thus far which is concerning. Blood pr essure trended down with maps in the 50s. A central line was placed and she was started on Levophed. The patient will be admitted to intensive care unit for further evaluation and management. She will be going via helicopter. ECG Initial ECG Impression Date: May 03, 2022 Initial ECG Impression Time: 15:22 Initial ECG Rate: 109 Initial ECG Rhythm: S.Tach Comment Narrow QRS, normal axis, no STEMI, ST depression inferiorly and laterally which is nonspecific Diagnostic Imaging Diagonstic Imaging: Xray (chest), CT (head, c spine, CTA chest, abd/pelvis) Comments [facility] [place] [place] [facility] [id number] PT STATUS: REG ER : 1960 PHYSICIAN: JESSY MOON MD ADMIT DATE: 05/03/22/ER FS Signed Date of Exam:05/03/22 CHEST 1 VIEW AP/PA ONLY Indication: Shortness of breath Frontal chest obtained 0238 p.m. ET tube tip overlies mid trachea. Heart and mediastinal silhouette are normal in appearance. The lungs are clear. There is no pneumothorax or pleural fluid. There are old right-sided rib fractures. IMPRESSION: ET tube tip overlies mid to lower trachea. No acute infiltrate or pneumothorax or pleural fluid. Dictated by: Dictated on workstation # [id number] Dict: 05/03/22 1453 Trans: 05/03/22 1507 [facility] [id number] Interpreted by: СВЕТЛАНА GOMEZ MD Electronically signed by: СВЕТЛАНА GOMEZ MD 05/03/22 1505 [facility] [place] [place] [facility] [id number] PT STATUS: REG ER : 1960 PHYSICIAN: JESSY MOON MD ADMIT DATE: 05/03/22/ER FS Draft Date of Exam:05/03/22 CT LIVIA CHEST/NOANG ABD-PELV W EXAMINATION: CT angiography chest with and without, CT abdomen and pelvis with and without. TECHNIQUE: Noncontrast enhanced helical images were obtained through the chest, abdomen and pelvis. Contrast enhanced thin section helical images were obtained through the chest, abdomen and pelvis with intravenous contrast timed for the optimal opacification of the arterial structures per departmental CTA protocol. Post-processing, retro reconstructions and interpretation of angiographic images of the vessels was performed. 3D MIP reconstructions were performed and reviewed. All CT scans use one or more of the following dose optimizing techniques: Automated exposure control, MA and/or KvP adjustment based on patient size and exam type or iterative reconstruction. HISTORY: Chest and abdomen injury. COMPARISON: None available. FINDINGS: There is no pulmonary embolism. Aorta is normal in caliber. There is no edema or pneumonia. No pleural effusion. No pneumothorax. No suspicious nodules. The patient is intubated. There is mild paraseptal emphysema. There is no axillary or supraclavicular lymphadenopathy. There is no mediastinal lymphadenopathy. Heart size is normal. There are mild coronary artery calcifications. No pericardial effusion. Aorta is normal in caliber. Liver enhances heterogeneously possibly due to geographic areas of steatosis. There is no biliary ductal dilation. Gallbladder is normal. Pancreas is normal. 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 Adrenal glands are normal. 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 There is no hydronephrosis. Bladder is decompressed. Bowel is normal in caliber without obstruction or inflammation. No free fluid or air. No abdominal or pelvic lymphadenopathy. Aorta is normal in caliber without aneurysm. There are no suspicious osseous lesions. IMPRESSION: 1. 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 2. Heterogeneous attenuation of the liver may represent areas of fat deposition. Liver MRI with and without contrast recommended when the patient is able. 3. No acute abnormality in the chest. Dictated on workstation # [id number] Dict: 05/03/22 1532 Trans: 05/03/22 1543 [id number] Interpreted by: VA TOVAR MD Electronically signed by: [facility] [place] [place] NAME: JANET HERNANDES REC#: [id number] PT STATUS: REG ER : 1960 PHYSICIAN: JESSY MOON MD ADMIT DATE: 05/03/22/ER FS Draft Date of Exam:05/03/22 CT HEAD/CERVICAL SPINE WO PROCEDURE: CT head and CT cervical spine without contrast. TECHNIQUE: Multiple contiguous axial images were obtained through the brain and cervical spine without the use of intravenous contrast. Sagittal and coronal reformations through the cervical spine were then performed. Auto Exposure Controls were utilized during the CT exam to meet ALARA standards for radiation dose reduction. INDICATION: Altered mental status. Unresponsive. Trauma. Multiple falls. COMPARISON: None. FINDINGS: CT HEAD: Moderate generalized parenchymal volume loss. No intracranial hemorrhage, mass effect, hydrocephalus, or extra-axial fluid collections. No CT evidence of a territorial infarction. Osseous structures are intact. Paranasal sinuses and mastoids are clear. CT CERVICAL SPINE: Grade 1 anterolisthesis of C3 on C4 and C7 on T1. Vertebral body heights are preserved. No fractures. Anterior fusion at C6-C7. No high-grade spinal canal stenosis is evident by CT. ETT. Moderate atherosclerotic calcifications. Lung apices are clear. IMPRESSION: No acute intracranial or cervical spine CT findings. Chronic findings as above. Dictated on workstation # [id number] Dict: 05/03/22 1529 Trans: 05/03/22 1547 [id number] Interpreted by: EDILBERTO RUELAS MD Electronically signed by: [facility] [place] NAME: JANET HERNANDES [facility] REC#: [id number] PT STATUS: REG ER : 1960 PHYSICIAN: JESSY MOON MD ADMIT DATE: 05/03/22/ER FS Signed Date of Exam:05/03/22 CHEST 1 VIEW AP/PA ONLY INDICATION: Central line placement. TECHNIQUE: Frontal chest obtained at 04:50 p.m. and compared to same day at 02:38 p.m. FINDINGS: ET tube tip overlies midtrachea. There is a new right IJ central catheter tip overlying mid SVC. There is no pneumothorax. There is no pleural fluid. Mild central vascular congestion is noted. IMPRESSION: New right IJ catheter tip overlying mid SVC. No pneumothorax or pleural fluid following device placement. Otherwise, no change from earlier today. Dictated by: Dictated on workstation # [id number] Dict: 05/03/22 1658 Trans: 05/03/226 AS6 [id number] Interpreted by: СВЕТЛАНА GOMEZ MD Electronically signed by: СВЕТЛАНА GOMEZ MD 05/03/22 1706 Critical Care Note Critical Care Start Time: 14:16 Stop Time: 20:10 Total Time (minutes) 105 Progress Patient was at significant risk for hemodynamic and respiratory compromise and . She required frequent reassessment, multiple conversations with other physicians, multiple conversations with family. Time was spent at bedside titrating drips in her IV as well as managing her ventilator. All time billed for critical care is separate from procedures. Departure Impression Primary Impression: Respiratory failure Qualified Codes: J96.01 - Acute respiratory failure with hypoxia Additional Impressions: Metabolic acidosis Acute renal failure Qualified Codes: N17.9 - Acute kidney failure, unspecified Septic shock COVID-19 Disposition: 02 XFER SHT-TRM HOSP Condition: Critical Admissions Decision to Admit/Date: May 03, 2022 Time/Decision to Admit Time: 15:55 Transfer Transfer Reason: Exceeds level of care (needs nephrology) Transfer Progress Notes Contacted [facility] at 15:55 and discussed the case with the triage nurse. Awaiting a callback to discuss with the physician. I called back at 16:57 and the case is still under review by the medical ICU physician and team. Discussed the case with the ICU physician, Dr. Barajas, at 17:20 who accepted her for transport. [facility] arrived for helicopter transport and unfortunately they are having critical issues on their ventilator making it non-usable. Patient transitioned back to our ventilator and we are awaiting a new vent to be flown here before they can leave. Transfer Facility: [facility] Method of Transfer: Air Departure-Patient Inst. Referrals: CHOLO KIM MD (PCP/Family) Primary Care Physician JESSY MOON MD May 03, 2022 15:23
[2022-05-03 15:33] LABS: ABG PCO2 33 MMHG (35-45); ABG PH 6.89 (7.37-7.43); ABG PO2 333 MMHG (79-93)
[2022-05-03] MEDS ORDERED: RT-ALBUTEROL/IPRATROPIUM 3 ML (DUONEB) VIAL ONE (15:34)
[2022-05-03 15:35] LABS: ABG OXYGEN SATURATION 100 % (94-100); ABG TCO2 7.3 MMOL/L (21.0-31.0)
[2022-05-03 15:36] LABS: INSPIRED O2 100%; PATIENT TEMP 95.8; VENTILATOR YES
--- NOTE | 2022-05-03 15:43 | Diagnostic Imaging Report ---
EXAMINATION: CT angiography chest with and without, CT abdomen and pelvis with and without. TECHNIQUE: Noncontrast enhanced helical images were obtained through the chest, abdomen and pelvis. Contrast enhanced thin section helical images were obtained through the chest, abdomen and pelvis with intravenous contrast timed for the optimal opacification of the arterial structures per departmental CTA protocol. Post-processing, retro reconstructions and interpretation of angiographic images of the vessels was performed. 3D MIP reconstructions were performed and reviewed. All CT scans use one or more of the following dose optimizing techniques: Automated exposure control, MA and/or KvP adjustment based on patient size and exam type or iterative reconstruction. HISTORY: Chest and abdomen injury. COMPARISON: None available. FINDINGS: There is no pulmonary embolism. Aorta is normal in caliber. There is no edema or pneumonia. No pleural effusion. No pneumothorax. No suspicious nodules. The patient is intubated. There is mild paraseptal emphysema. There is no axillary or supraclavicular lymphadenopathy. There is no mediastinal lymphadenopathy. Heart size is normal. There are mild coronary artery calcifications. No pericardial effusion. Aorta is normal in caliber. Liver enhances heterogeneously possibly due to geographic areas of steatosis. There is no biliary ductal dilation. Gallbladder is normal. Pancreas is normal. 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 Adrenal glands are normal. 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 There is no hydronephrosis. Bladder is decompressed. Bowel is normal in caliber without obstruction or inflammation. No free fluid or air. No abdominal or pelvic lymphadenopathy. Aorta is normal in caliber without aneurysm. There are no suspicious osseous lesions. IMPRESSION: 1. 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 2. Heterogeneous attenuation of the liver may represent areas of fat deposition. Liver MRI with and without contrast recommended when the patient is able. 3. No acute abnormality in the chest. Dictated by: Dictated on workstation # [id number]
[2022-05-03] MEDS ORDERED: SODIUM BICARB 8.4% 50 MEQ/50 ML (ABBOTT) SYR IV ONE ×2 (15:45→17:30)
[2022-05-03] MEDS ORDERED: LACTATED RINGERS 1,000 ML IV SCH ×2 (15:45→16:45)
[2022-05-03] MEDS ORDERED: RT-ALBUTEROL/IPRATROPIUM 3 ML (DUONEB) VIAL INH ONE (15:45)
[2022-05-03] MEDS ORDERED: LACTATED RINGERS 1,000 ML IV STA (15:45)
--- NOTE | 2022-05-03 15:48 | Diagnostic Imaging Report ---
PROCEDURE: CT head and CT cervical spine without contrast. TECHNIQUE: Multiple contiguous axial images were obtained through the brain and cervical spine without the use of intravenous contrast. Sagittal and coronal reformations through the cervical spine were then performed. Auto Exposure Controls were utilized during the CT exam to meet ALARA standards for radiation dose reduction. INDICATION: Altered mental status. Unresponsive. Trauma. Multiple falls. COMPARISON: None. FINDINGS: CT HEAD: Moderate generalized parenchymal volume loss. No intracranial hemorrhage, mass effect, hydrocephalus, or extra-axial fluid collections. No CT evidence of a territorial infarction. Osseous structures are intact. Paranasal sinuses and mastoids are clear. CT CERVICAL SPINE: Grade 1 anterolisthesis of C3 on C4 and C7 on T1. Vertebral body heights are preserved. No fractures. Anterior fusion at C6-C7. No high-grade spinal canal stenosis is evident by CT. ETT. Moderate atherosclerotic calcifications. Lung apices are clear. IMPRESSION: No acute intracranial or cervical spine CT findings. Chronic findings as above. Dictated by: Dictated on workstation # [id number]
[2022-05-03] MEDS ORDERED: KETAMINE HCL 100 MG/ML 5 ML VIAL IM ONE (16:00)
[2022-05-03] MEDS ORDERED: fentaNYL INJ 100 MCG/2 ML AMP IVP ONE ×2 (16:30)
[2022-05-03] MEDS ORDERED: MIDAZOLAM 10 MG/2 ML (VERSED) VIAL IM ONE (16:30)
[2022-05-03] MEDS ORDERED: MIDAZOLAM 5 MG/5 ML (VERSED) VIAL IVP ONE (16:30)
[2022-05-03] MEDS ORDERED: NOREPINEPHRINE 8 MG/250 ML 250 ML IV ONE (16:31)
[2022-05-03] MEDS ORDERED: NOREPINEPHRINE 8 MG/250 ML 250 ML IV SCH (16:45)
--- NOTE | 2022-05-03 17:03 | Diagnostic Imaging Report ---
INDICATION: Central line placement. TECHNIQUE: Frontal chest obtained at 04:50 p.m. and compared to same day at 02:38 p.m. FINDINGS: ET tube tip overlies midtrachea. There is a new right IJ central catheter tip overlying mid SVC. There is no pneumothorax. There is no pleural fluid. Mild central vascular congestion is noted. IMPRESSION: New right IJ catheter tip overlying mid SVC. No pneumothorax or pleural fluid following device placement. Otherwise, no change from earlier today. Dictated by: Dictated on workstation # [id number]
[2022-05-03] MEDS ORDERED: D5W 1000 ML IV SOLUTION 1,000 ML IV STA (17:21)
[2022-05-03 17:25] LABS: BILIRUBIN,URINE NEGATIVE (NEGATIVE); CLARITY,URINE CLOUDY; COLOR,URINE YELLOW; GLUCOSE, URINE (UA) NEGATIVE (NEGATIVE); KETONES,URINE NEGATIVE (NEGATIVE); LEUKOCYTE ESTERASE ,URINE 2+ (NEGATIVE); NITRITE,URINE NEGATIVE (NEGATIVE); PROTEIN,URINE 2+ (NEGATIVE)
[2022-05-03] MEDS ORDERED: SODIUM BICARB 8.4% 50 MEQ/50 ML (ABBOTT) SYR ONE (17:28)
[2022-05-03 17:30] LABS: BACTERIA,URINE LARGE /HPF
[2022-05-03 17:31] LABS: RBC,URINE RARE /HPF
[2022-05-03 17:46] VITALS: BP 122/51
[2022-05-03 18:14] LABS: ABG PCO2 23 MMHG (35-45); ABG PH 7.19 (7.37-7.43); ABG PO2 536 MMHG (79-93)
[2022-05-03 18:15] LABS: ABG BASE EXCESS -17.6 MMOL/L (-2.5-2.5); ABG OXYGEN SATURATION 100 % (94-100); ABG TCO2 9.5 MMOL/L (21.0-31.0); ALLENS TEST OK; INSPIRED O2 100%; PATIENT TEMP 35.9; VENTILATOR YES
[2022-05-03 18:44] LABS: CALCIUM 7.5 MG/DL (8.5-10.1); CREATININE SERUM 3.26 MG/DL (0.60-1.30)
== END 2022-05-03 20:20 | disposition short-term general hospital (02) ==
LOC: EDUNIT# 14:16 → ER FS 14:19
DX: J96.90 Respiratory failure, unspecified, unspecified whether with hypoxia or hypercapnia (principal); U07.1 COVID-19; E87.20 Acidosis, unspecified; N17.9 Acute kidney failure, unspecified; R65.21 Severe sepsis with septic shock
CPT/HCPCS: 31500; 36415; 51702; 70450; 71045; 71275; 72125; 74177; 80048; 80053; 81000; 82805; 82947; 83605; 83735; 83880; 84484; 85007; 85027; 85610; 85730; 87040; 87077; 87088; 87186; 87636; 93005; 99291; Q9967